=== PATIENT | female | born 1990 | race Caucasian/White ===

== ENCOUNTER 2019-09-05 22:44 | Emergency (ER) | payer OTHER, MEDICAID ==
[~2019-09-05] VITALS: Ht 170.2 cm; Wt 61.2 kg
[~2019-09-05 22:44] MED LIST: HYDROCODON-ACE1 EAC8 PO; KEFLEX500 M2 PO
[2019-09-05] MEDS ORDERED: IRON325 M1 PO (23:24)
[2019-09-06 00:31] VITALS: BP 138/92
== END 2019-09-06 00:31 | disposition home or self-care (01) ==
LOC: M.ERS 22:44
DX: K02.9 Dental caries, unspecified (principal); Z88.0 Allergy status to penicillin; Z88.6 Allergy status to analgesic agent; Z98.890 Other specified postprocedural states

== ENCOUNTER 2019-09-12 00:27 | Emergency (ER) | payer OTHER, MEDICAID ==
[~2019-09-12] VITALS: Ht 170.2 cm; Wt 62.6 kg
[~2019-09-12 00:27] MED LIST changes: +IRON325 M1 PO
[2019-09-12 01:25] LABS: INFLUENZA A ANTIGEN Negative (Negative); INFLUENZA B ANTIGEN Negative (Negative)
[2019-09-12] MEDS ORDERED: PNV 29-1 TABLE1 EACH PO (01:42)
[2019-09-12 03:02] VITALS: BP 144/84
== END 2019-09-12 03:02 | disposition home or self-care (01) ==
LOC: M.ERS 00:27
PROVIDERS: Personal Emergency Response Attendant
DX: M25.50 Pain in unspecified joint (principal); R50.9 Fever, unspecified; F17.210 Nicotine dependence, cigarettes, uncomplicated; Z98.890 Other specified postprocedural states; Z88.0 Allergy status to penicillin; Z88.6 Allergy status to analgesic agent